=== PATIENT | male | born 1930 | race Asian ===

== ENCOUNTER 2018-03-08 15:13 | Inpatient (IN) | payer BC, OTHER ==
[~2018-03-08] VITALS: Ht 165.1 cm; Wt 72.6 kg
[~2018-03-08 15:13] MED LIST: ASPI-1158 PO; DILT120C61 PO; FURO40TA5 PO; POTA20TA82 PO
[2018-03-08] MEDS ORDERED: SODIUM CHLORIDE 0.9% 1,000 ML IV ONE (15:32)
[2018-03-08 16:26] LABS: CHLORIDE 105 mEq/L (98-107)
[2018-03-08 16:34] LABS: HEMATOCRIT. 32.5 % (42.0-52.0); HEMOGLOBIN. 10.7 g/dL (14.0-18.0); MEAN CORPUSCULAR HEMOGLOBIN 30.4 pg (28.0-32.0); MEAN CORPUSCULAR VOLUME 92.2 fL (80.0-94.0); MEAN PLATELET VOLUME 7.5 fl (7.4-10.4); PLATELET 142 x1000/uL (130-400); RED BLOOD CELL COUNT 3.52 mill/uL (4.7-6.1); RED CELL DISTRIBUTION WIDTH 15.8 % (11.6-14.6)
[2018-03-08 16:35] LABS: CREATINE KINASE 73 IU/L (39-308)
[2018-03-08 16:38] LABS: CREATINE KINASE MB FRACTION 1.7 ng/mL (0.5-3.6)
[2018-03-08 16:40] LABS: INR 1.2; PROTHROMBIN TIME 11.9 sec (9.1-11.1)
[2018-03-08 16:53] LABS: PLATELET ESTIMATE NORMAL
[2018-03-08] MEDS ORDERED: FUROSEMIDE 20MG/2ML VIAL IVP ONE (17:15)
[2018-03-08] MEDS ORDERED: LEVETIRACETAM 500MG PREMIX 100 ML IV ONE (17:30)
[2018-03-08] MEDS ORDERED: ACETAMINOPHEN 325MG TABLET PO PRN (18:15)
[2018-03-08] MEDS ORDERED: DOCUSATE SODIUM 100MG CAPSULE PO PRN (18:15)
[2018-03-08 18:50] LABS: CLARITY URINE CLEAR (CLEAR); COLOR URINE DARK YELLOW (YELLOW); KETONES URINE NEGATIVE (NEGATIVE); LEUKOCYTE ESTERASE URINE NEGATIVE (NEGATIVE); NITRITE URINE NEGATIVE (NEGATIVE); OCCULT BLOOD URINE NEGATIVE (NEGATIVE); PH URINE 6.5 (4.5-8.0); PROTEIN URINE 1+ (NEGATIVE)
[2018-03-08 23:12] VITALS: BP 152/55
[2018-03-08 23:13] VITALS: BP 148/88
[2018-03-08 23:19] VITALS: BP 148/84
[2018-03-08 23:30] VITALS: BP 149/83
[2018-03-08] MEDS ORDERED: NICARDIPINE 100 MG in SODIUM CHLORIDE 0.9% 60 ML IV PRN ×2 (23:30→23:45)
[2018-03-08 23:45] VITALS: BP 131/77
[2018-03-08] MEDS ORDERED: NICARDIPINE 40MG/200ML PREMIX 200 ML IV SCH (23:45)
[2018-03-09] VITALS (98 sets, daily range): BP systolic 107–192; BP diastolic 21–101
[2018-03-09] MEDS: DEXT 5%/LACTATED RINGERS 1,000 ML IV SCH ×2 (00:08→17:52)
[2018-03-09] MEDS: LEVETIRACETAM 500 MG in SODIUM CHLORIDE 0.9% 100 ML IV SCH ×2 (00:58→13:02)
[2018-03-09 06:10] LABS: HEMATOCRIT. 32.4 % (42.0-52.0); HEMOGLOBIN. 10.6 g/dL (14.0-18.0); MEAN CORPUSCULAR HEMOGLOBIN 30.1 pg (28.0-32.0); MEAN CORPUSCULAR VOLUME 91.8 fL (80.0-94.0); MEAN PLATELET VOLUME 7.4 fl (7.4-10.4); PLATELET 137 x1000/uL (130-400); RED BLOOD CELL COUNT 3.53 mill/uL (4.7-6.1); RED CELL DISTRIBUTION WIDTH 15.5 % (11.6-14.6)
[2018-03-09 06:45] LABS: CHLORIDE 109 mEq/L (98-107)
[2018-03-09 07:01] LABS: FOLIC ACID (FOLATE) SERUM >20 ng/mL ng/mL (>5.38); TOTAL IRON BINDING CAPACITY 212 ug/dL (250-450)
[2018-03-09 07:12] LABS: VITAMIN B12 SERUM 1948 pg/mL (211-911)
[2018-03-09 08:05] LABS: PLATELET ESTIMATE NORMAL
[2018-03-09] MEDS: POTASSIUM CHLORIDE 20MEQ TABLET SR PO SCH ×2 (08:51→17:52)
[2018-03-09] MEDS: FUROSEMIDE 40MG/4ML VIAL IVP SCH (08:51)
[2018-03-09] MEDS ORDERED: DILTIAZEM HCL 120MG CAPSULE CD 24HR PO SCH (09:00)
[2018-03-09] MEDS: IPRATROPIUM/ALBUTEROL 0.5-3(2.5)MG/3ML NEB HHN PRN ×2 (10:15→20:33)
[2018-03-09 10:55] LABS: BG BASE EXCESS -0.1 mmol/L (-2.0-2.0); BG CARBOXYHEMOGLOBIN 1.6 % (0.5-1.5); BG DEOXYHEMOGLOBIN 7.1 % (0.0-5.0); BG FRACTION INSPIRED OXYGEN 36; BG HCO3 ACT 23.1 mmol/L (22.0-26.0); BG OXYGEN SATURATION 92.8 % (92.0-98.5); BG OXYHEMOGLOBIN 91.3 % (94.0-97.0); BG PCO2 32.4 mmHg (35.0-45.0); BG SAMPLE SITE LEFT BRACHIAL; BG VENT MODE NASAL CANNULA
[2018-03-09] MEDS ORDERED: AZITHROMYCIN 500 MG in DEXT 5% WATER 250 ML IV SCH (11:30)
[2018-03-09] MEDS ORDERED: DILTIAZEM HCL 5MG/ML 5ML VIAL IV NR (11:30)
[2018-03-09] MEDS ORDERED: CEFTRIAXONE 1 G PREMIX 50 ML IV SCH (11:30)
[2018-03-09] MEDS: DILTIAZEM HCL 125 MG in DEXT 5% WATER 100 ML IV SCH (11:53)
[2018-03-09] MEDS: BUDESONIDE 0.5MG/2ML NEB HHN SCH ×2 (12:38→20:34)
[2018-03-09] MEDS: AZITHROMYCIN 500 MG TABLET PO SCH (13:24)
[2018-03-09] MEDS: CEFTRIAXONE 1,000 MG in DEXTROSE 5% WATER 50 ML IV SCH (13:24)
[2018-03-09] MEDS ORDERED: FUROSEMIDE 40MG/4ML VIAL IVP NR (17:45)
[2018-03-09] MEDS ORDERED: FUROSEMIDE 100MG/10ML VIAL IVP NR (22:11)
[2018-03-09] MEDS ORDERED: POTASSIUM CHLORIDE 20MEQ TABLET SR PO NR (22:12)
[2018-03-09 23:28] LABS: BG BASE EXCESS 1.5 mmol/L (-2.0-2.0); BG CARBOXYHEMOGLOBIN 1.6 % (0.5-1.5); BG DEOXYHEMOGLOBIN 3.3 % (0.0-5.0); BG FRACTION INSPIRED OXYGEN 40; BG HCO3 ACT 25.2 mmol/L (22.0-26.0); BG METHEMOGLOBIN 0.3 % (0.0-1.5); BG OXYGEN SATURATION 96.6 % (92.0-98.5); BG OXYHEMOGLOBIN 94.8 % (94.0-97.0); BG PCO2 36.1 mmHg (35.0-45.0); BG PH 7.461 (7.350-7.450); BG PO2 89.5 mmHg (75.0-100.0); BG SAMPLE SITE RIGHT BRACHIAL; BG TOTAL HEMOGLOBIN 11.3 g/dL (12.0-18.0); BG VENT MODE NASAL CANNULA
[2018-03-10] VITALS (96 sets, daily range): BP systolic 93–179; BP diastolic 20–101
[2018-03-10] MEDS: LEVETIRACETAM 500 MG in SODIUM CHLORIDE 0.9% 100 ML IV SCH ×2 (01:14→13:04)
[2018-03-10] MEDS: DILTIAZEM HCL 125 MG in DEXT 5% WATER 100 ML IV SCH ×2 (04:08→20:44)
[2018-03-10 05:37] LABS: HEMATOCRIT. 28.9 % (42.0-52.0); HEMOGLOBIN. 9.6 g/dL (14.0-18.0); MEAN CORPUSCULAR HEMOGLOBIN 30.5 pg (28.0-32.0); MEAN CORPUSCULAR VOLUME 92.2 fL (80.0-94.0); MEAN PLATELET VOLUME 7.7 fl (7.4-10.4); PLATELET 113 x1000/uL (130-400); RED BLOOD CELL COUNT 3.14 mill/uL (4.7-6.1); RED CELL DISTRIBUTION WIDTH 15.7 % (11.6-14.6)
[2018-03-10 07:14] LABS: PLATELET ESTIMATE SLIGHTLY DECREASED
[2018-03-10] MEDS: BUDESONIDE 0.5MG/2ML NEB HHN SCH ×2 (08:32→21:05)
[2018-03-10] MEDS: IPRATROPIUM/ALBUTEROL 0.5-3(2.5)MG/3ML NEB HHN PRN ×3 (08:32→21:06)
[2018-03-10] MEDS: FUROSEMIDE 40MG/4ML VIAL IVP SCH (09:08)
[2018-03-10] MEDS: POTASSIUM CHLORIDE 20MEQ/PACKET PO SCH ×2 (09:08→18:19)
[2018-03-10] MEDS: DEXT 5%/LACTATED RINGERS 1,000 ML IV SCH (11:19)
[2018-03-10] MEDS ORDERED: POTASSIUM CHLORIDE 20MEQ/PACKET PO NR (11:30)
[2018-03-10] MEDS ORDERED: FUROSEMIDE 100MG/10ML VIAL IVP NR ×2 (11:30→20:45)
[2018-03-10] MEDS: AZITHROMYCIN 500 MG TABLET PO SCH (11:39)
[2018-03-10] MEDS: CEFTRIAXONE 1,000 MG in DEXTROSE 5% WATER 50 ML IV SCH (13:00)
[2018-03-10] MEDS ORDERED: TAMS0.4C31 PO (14:48)
[2018-03-10] MEDS ORDERED: NITR0.4T49 SL (14:48)
[2018-03-10] MEDS ORDERED: FURO80TA3 MT (14:48)
[2018-03-10] MEDS ORDERED: SERT-112 MT (14:48)
[2018-03-11] VITALS (51 sets, daily range): BP systolic 45–204; BP diastolic 28–147
[2018-03-11] MEDS: LEVETIRACETAM 500 MG in SODIUM CHLORIDE 0.9% 100 ML IV SCH (00:30)
[2018-03-11 07:26] LABS: HEMATOCRIT. 30.9 % (42.0-52.0); MEAN CORPUSCULAR HEMOGLOBIN 29.9 pg (28.0-32.0); MEAN CORPUSCULAR VOLUME 92.6 fL (80.0-94.0); PLATELET 114 x1000/uL (130-400); RED BLOOD CELL COUNT 3.34 mill/uL (4.7-6.1)
[2018-03-11 08:23] LABS: NUCLEATED RED BLOOD CELLS 1 /100 WBC; PLATELET ESTIMATE SLIGHTLY DECREASED
[2018-03-11] MEDS: BUDESONIDE 0.5MG/2ML NEB HHN SCH (08:23)
[2018-03-11] MEDS: IPRATROPIUM/ALBUTEROL 0.5-3(2.5)MG/3ML NEB HHN PRN (08:23)
[2018-03-11 08:42] LABS: BG BASE EXCESS 2.5 mmol/L (-2.0-2.0); BG CARBOXYHEMOGLOBIN 1.2 % (0.5-1.5); BG DEOXYHEMOGLOBIN 14.7 % (0.0-5.0); BG FRACTION INSPIRED OXYGEN 50; BG HCO3 ACT 26.2 mmol/L (22.0-26.0); BG METHEMOGLOBIN 0.2 % (0.0-1.5); BG OXYGEN SATURATION 85.1 % (92.0-98.5); BG OXYHEMOGLOBIN 83.9 % (94.0-97.0); BG PCO2 37.1 mmHg (35.0-45.0); BG PH 7.466 (7.350-7.450); BG PO2 49.5 mmHg (75.0-100.0); BG SAMPLE SITE RIGHT RADIAL; BG VENT MODE MASK - VENTI
[2018-03-11] MEDS ORDERED: PREDNISONE 20MG TABLET PO SCH (09:00)
[2018-03-11] MEDS: POTASSIUM CHLORIDE 20MEQ/PACKET PO SCH (09:00)
[2018-03-11] MEDS ORDERED: NOREPINEPHRINE 16 MG in DEXT 5% WATER 234 ML IV PRN (09:15)
[2018-03-11] MEDS ORDERED: PHENYLEPHRINE 40 MG in DEXT 5% WATER 500 ML IV PRN (09:15)
[2018-03-11] MEDS ORDERED: SODIUM CHLORIDE 0.9% 500 ML IV ONE ×3 (10:32→11:00)
[2018-03-11 11:11] LABS: BG BASE EXCESS -14.8 mmol/L (-2.0-2.0); BG FRACTION INSPIRED OXYGEN 100; BG HCO3 ACT 19.1 mmol/L (22.0-26.0); BG PCO2 88.5 mmHg (35.0-45.0); BG PH 6.952 (7.350-7.450); BG PO2 < 30.3 mmHg (75.0-100.0); BG SAMPLE SITE RIGHT FEMORAL; BG TIDAL VOLUME(mL) 500 mL; BG VENT MODE VENT - A/C; BG VENT RATE 24 set
[2018-03-11] MEDS ORDERED: EPINEPHRINE 0.1MG/ML (1:10,000) 10ML SYR ONE ×2 (14:02→16:14)
[2018-03-11] MEDS ORDERED: ATROPINE SULFATE 1MG/10ML SYR ONE ×2 (14:19→16:14)
[2018-03-11] MEDS ORDERED: CALCIUM CHLORIDE 1GM/10ML SYR IV ONE (16:14)
[2018-03-11] MEDS ORDERED: SODIUM BICARBONATE 8.4% 10MEQ/10ML SYR IV ONE (16:14)
== END 2018-03-11 11:02 | disposition expired | DRG 64 ==
LOC: ER 15:13 → MICUSO 17:31 → EDBEDREQ 17:34 → EDBEDREQSVC 17:34 → ENRESERV 21:52
PROVIDERS: ADMIT Ophthalmology; ATTEND Ophthalmology
PROC: 5A09357 Assistance with Respiratory Ventilation, Less than 24 Consecutive Hours, Continuous Positive Airway Pressure (ICD-10-PCS; 2018-03-09)
PROC: 5A09357 Assistance with Respiratory Ventilation, Less than 24 Consecutive Hours, Continuous Positive Airway Pressure (ICD-10-PCS; 2018-03-10)
PROC: 5A1935Z Respiratory Ventilation, Less than 24 Consecutive Hours (ICD-10-PCS; principal; 2018-03-11)
PROC: 5A12012 Performance of Cardiac Output, Single, Manual (ICD-10-PCS; 2018-03-11)
PROC: 0BH17EZ Insertion of Endotracheal Airway into Trachea, Via Natural or Artificial Opening (ICD-10-PCS; 2018-03-11)
PROC: 5A09357 Assistance with Respiratory Ventilation, Less than 24 Consecutive Hours, Continuous Positive Airway Pressure (ICD-10-PCS; 2018-03-11)
DX: I60.9 Nontraumatic subarachnoid hemorrhage, unspecified (principal); J96.91 Respiratory failure, unspecified with hypoxia; J18.9 Pneumonia, unspecified organism; I13.0 Hypertensive heart and chronic kidney disease with heart failure and stage 1 through stage 4 chronic kidney disease, or unspecified chronic kidney disease; G93.40 Encephalopathy, unspecified; I31.3 Pericardial effusion (noninflammatory); I48.92 Unspecified atrial flutter; I67.82 Cerebral ischemia; I27.20 Pulmonary hypertension, unspecified; I48.2 Chronic atrial fibrillation; N18.3 Chronic kidney disease, stage 3 (moderate); I50.9 Heart failure, unspecified; M47.896 Other spondylosis, lumbar region; I49.9 Cardiac arrhythmia, unspecified; M19.90 Unspecified osteoarthritis, unspecified site; D64.9 Anemia, unspecified; I08.0 Rheumatic disorders of both mitral and aortic valves; G89.29 Other chronic pain; M54.9 Dorsalgia, unspecified; N40.0 Benign prostatic hyperplasia without lower urinary tract symptoms; Z86.718 Personal history of other venous thrombosis and embolism; Z87.891 Personal history of nicotine dependence; Z88.0 Allergy status to penicillin; Z95.810 Presence of automatic (implantable) cardiac defibrillator; Z79.82 Long term (current) use of aspirin; Z79.899 Other long term (current) drug therapy; Z90.49 Acquired absence of other specified parts of digestive tract; Z86.711 Personal history of pulmonary embolism; I46.9 Cardiac arrest, cause unspecified
CPT/HCPCS: 36415; 36600; 71045; 71250; 72131; 80048; 82375; 82550; 82553; 82607; 82746; 82805; 82962; 83540; 83550; 83605; 83735; 83880; 84145; 84443; 84484; 85007; 85027; 87804; 93005; 93306; 93970; 94640; 94660; 97162; 99285; J0461; J0696; J1940; J1953; J3490; J7030; J7050; J7060; J7620; J7626; A4315